=== PATIENT | female | born 1985 | race Caucasian/White ===

== ENCOUNTER 2024-12-31 21:09 | Emergency (ER) | payer MEDICAID, SELFPAY ==
--- OUTSIDE RECORDS SUMMARY | 2024-12-31 21:11 | XMS_ITS | Encounter Summary ---
Author Organization [facility] Address [address], [place] [address] Care Team Providers Care Visual Educator Name Role Phone Manohar Nance PA-C Primary Care Provider [phone] Encounter Details Date Type Department Care Team (Late st Contact Info) Description 09/16/2013 Correspondence [facility] [address] [place], [place] [id number] Eliot Rivas MD DME EQUIPMENT PROOF OF DELIVERY Social History Tobacco Use Types Packs/Day Years Used Date Smoking Tobacco: Every Day Cigarettes Last attempted to quit: 05/05/2011 Smokeless Tobacco: Never Alcohol Use Standard Drinks/Week Comments Yes 0.8 (1 standard drink = 0.6 oz p ure alcohol) occasionally Comments Unknown Sex and Gender Information Value Date Recorded Sex Assigned at Not on file Legal Sex Female 4:47 AM CDT Gender Identity Not on file Sexual Orientation Not on file documented as of this encounter Progress Notes * Eliot Rivas MD - 09/16/2013 12:00 AM CDT documented in this encounter Plan of Treatment Not on file documented as of this encounter Visit Diagnoses Not on filedocumented in this encounter Care Teams Visual Educator Relationship Specialty Start Date End Date Manohar Nance PA-C [address] [place] [address] PCP - General Physician Shirt Turner 07/02/18 documented as of this encounter
--- OUTSIDE RECORDS SUMMARY | 2024-12-31 21:11 | XMS_ITS | Encounter Summary ---
Author Organization [facility] Address [address] [address] Care Team Providers Care Photographer Assistant Name Role Phone Manohar Nance PA-C Primary Care Provider Encounter Details Date Type Department Care Team (Latest Contact Info) Description 11/13/1998 Orders Only Serjio Matute MD [address] [place], [place] [id number] Social History Tobacco Use Types Packs/Day Years Used Date Smoking Tobacco: Never Assessed Comments Unknown Sex and Gender Information Value Date Recorded Sex Assigned at Not on file Legal Sex Female 4:47 AM CDT Gender Identity Not on file Sexual Orientation Not on file documented as of this encounter Plan of Treatment Not on file documented as of this encounter Visit Diagnoses Not on filedocumented in this encounter Care Teams Photographer Assistant Relationship Specialty Start Date End Date Manohar Nance PA-C [address] [place] [address] PCP - General Physician Cattle Inspector 07/02/18 documented as of this encounter
--- OUTSIDE RECORDS SUMMARY | 2024-12-31 21:11 | XMS_ITS | Encounter Summary ---
Author Organization [facility] Address [address] [address] Care Team Providers Care Automatic Lathe Tender Name Role Phone Manohar Nance PA-C Primary Care Provider Encounter Details Date Type Department Care Team (Latest Contact Info) Description 04/09/1995 Orders Only Min Vanegas MD Social History Tobacco Use Types Packs/Day Years [...] on filedocumented in this encounter Care Teams Automatic Lathe Tender Relationship Specialty Start Date End Date Manohar Nance PA-C [address] [place] [address] PCP - General Physician Flange Turner 07/02/18 documented as of this encounter
--- OUTSIDE RECORDS SUMMARY | 2024-12-31 21:11 | XMS_ITS | Encounter Summary ---
Author Organization [facility] Address [address] [address] Care Team Providers Care General Operations Manager Name Role Phone Manohar Nance PA-C Primary Care Provider [phone] Encounter Details Date Type Department Care Team (Latest Contact Info) Description 10/02/1998 Orders Only Medardo Zayas MD [address] [place] [address] Social History Tobacco Use Types Packs/Day Years [...] on filedocumented in this encounter Care Teams General Operations Manager Relationship Specialty Start Date End Date Manohar Nance PA-C [address] [place] [address] PCP - General Physician Head Knitting Machine Fixer 07/02/18 documented as of this encounter
--- OUTSIDE RECORDS SUMMARY | 2024-12-31 21:11 | XMS_ITS | Encounter Summary ---
Author Organization [facility] Address [address], [place] [address] Care Team Providers Care Stem Frazer Name Role Phone Manohar Nance PA-C Primary Care Provider [phone] Encounter Details Date Type Department Care Team (Latest Contact Info) Description 11/24/1998 Orders Only Serjio Matute MD [address] [place], [place] [id number] Social History Tobacco Use Types Packs/Day Years [...] on filedocumented in this encounter Care Teams Stem Frazer Relationship Specialty Start Date End Date Manohar Nance PA-C [address] [place] [address] PCP - General Physician Dairy Farm Manager 07/02/18 documented as of this encounter
--- OUTSIDE RECORDS SUMMARY | 2024-12-31 21:11 | XMS_ITS | Encounter Summary ---
Author Organization [facility] Address [address] [place] [address] Care Team Providers Care Contracts Representative Name Role Phone No Ref-Primary, Physician Primary Care Provider Encounter Details Date Type Department Care Team (Late st Contact Info) Description 05/21/2024 MyC Medical Advice Initial Department Maritza Pond Social History Tobacco Use Types Packs/Day Years Used Date Smoking Tobacco: Former Cigarettes 0.5 10 1 07/15/2000 - 05/14/2011 Smokeless Tobacco: Never Comments:half a pack a day Alcohol Use Standard Drinks/Week Comments Yes 0 (1 standard drink = 0.6 oz pur e alcohol) occ PHQ-2 Answer Date Recorded PHQ-2 Score 0 06/16/2018 Adolescent Education Answer Date Record ed Getting School Help Needed Not on file 03/23 Comments No Sex and Gender Information Value Date Recorded Sex Assigned at Not on file Legal Sex Female 3:31 AM ECG TECHNICIAN Gender Identity Not on file Sexual Orientation Not on file documented as of this encounter Plan of Treatment Not on file documented as of this encounter Visit Diagnoses Not on filedocumented in this encounter Additional Health Concerns Assessment Noted Time PHQ-9 Depression Total Score: 4 11/23/19 17 7:11 AM CDT documented as of this encounter Care Teams Contracts Representative Relationship Specialty Start Date End Date No Ref-Primary, Physician PCP - General 11/16/20 documented as of this encounter
--- OUTSIDE RECORDS SUMMARY | 2024-12-31 21:11 | XMS_ITS | Clinical Summary ---
Author Organization [facility] Address [address] [place] [address] Care Team Providers Care Personal Development Coach Name Role Phone Manohar Nance PA-C Primary Care Provider [phone] Source Comments You are receiving this document as you are listed as the primary care provider,follow-up provider, or the patient has been referred to you for consultation.This is in compliance with the Medicare and[facility] EHR Incentive Program,which states Providers who transition their patient to another setting of careor provider of care or refers their patient to another provider of care shouldprovide summary care record for each transition of care or referral. [facility] Allergies Active Allergy Reactions Criticality Noted Date Comments Imidazole Antifungals Other, see comments 09/16 Blisters all over face Metronidazole 03/14/2005 PN: LW Reaction: blisters on face Penicillin And Derivatives Penicillins 04/23/2000 Medications * This document contains information received from the source organization and may not represent a complete record from that organization. acetaminophen (TYLENOL) 325 MG tablet Take 2 Tablets (650 mg) by mouth. Active aspirin EC 81 MG enteric coated tablet Take 81 mg by mouth daily. Active hydrOXYzine HCl (ATARAX) 25 MG tablet 1-2 tabs up tot every 6-8 hours as needed, makes you tired 30 Tablet 1 09/12/2021 Active Active Problems Problem Noted Date Diagnosed Date S/P laparoscopic hysterectomy 11/26/2022 Gastroesophageal reflux disease without esophagi tis 07/12/2019 Overview (05/19/2024): EGD 06/2019 normal, try PPI and low FODMAP diet Encounter for supervision of other normal pregna ncy 10/22/2011 Overview (02/20/2012): G3/1011 Engaged and with FOB for 8 years Works fulltime cleaning houses History of anxiety and off citalopram since July 2011 Generalized anxiety disorder 04/23/2010 Tobacco abuse 10/02/2009 Immunizations Immunization Administration Dates Next Due Flu Vac (3+ yrs) 06/19/2012,04/10/2004 H1n1 Miv Csl 3+ Yr (Injected) 04/17/2009 HepB Ped/Adol (0-18 yrs) 03/10/1997,02/05/1996 Influenza IIV4 (Quadrivalent ) 0.5mL (81762) 04/16/2021,04/12/2020 MMR 02/05/1996 Td 09/18/2006,03/10/1997 Tdap 11/23/2019,06/09/2009 Varicella 03/18/2000(Deferred: Immune by Danilo ashley) Family History Medical History Relation Name Comments High Blood Pressure Father Asthma Mother Blood Disease Mother factor V Other Maternal Aunt endometriosis Heart Disease Maternal Grandfather IN age 40 Relation Name Status Comments Father Mother Maternal Aunt Maternal Grandfather Social History Tobacco Use Types Packs/Day Years Used Date Smoking Tobacco: Every Day Cigarettes Smokeless Tobacco: Never Comments:1 pack/week Alcohol Use Standard Drinks/Week Comments Yes 0.8 (1 standard drink = 0.6 oz p ure alcohol) occasionally Comments Unknown Sex and Gender Information Value Date Recorded Sex Assigned at Not on file Legal Sex Female 4:47 AM CDT Gender Identity Not on file Sexual Orientation Not on file Last Filed Vital Signs Vital Sign Reading Time Taken Comments Blood Pressure 98/73 05/19/2024 8:09 AM SALES ORDER ADMINISTRATOR Pulse 99 05/19/2024 8:09 AM SALES ORDER ADMINISTRATOR Temperature 37.9 C (100.2 F) 05/19/2024 8:09 AM SALES ORDER ADMINISTRATOR Respiratory Rate 14 05/19/2024 8:09 AM SALES ORDER ADMINISTRATOR Oxygen Saturation 100% 05/19/2024 8:09 AM SALES ORDER ADMINISTRATOR Inhaled Oxygen Concentration - - Weight 71.2 kg (157 lb) 07/02/2018 3:56 PM SALES ORDER ADMINISTRATOR Height 175.3 cm (5' 9) 03/03/2019 1:10 PM CDT Body Mass Index 23.18 07/02/2018 3:56 PM SALES ORDER ADMINISTRATOR Plan of Treatment Health Maintenance Due Date Last Done Comments Cervical Cancer Screening Due 1983 Hep C Screening (Preventive Services) 1985 HepB Vaccine (3) 05/05/1997 03/10/1997, 02/05/1996 Adult Preventive Visit 2001 02/05/1996 Pneumococcal Vaccine (1 of 2 - PCV) 2002 COVID-19 Vaccine (1 - season) 2024 Mammogram 12/21/2024 12/22/2023, 10/23/2022 Influenza Vaccine (#1) 2025 , 04/12/2020, 06/19/2012, Additional history exists DTaP/Tdap/Td Vaccine (4 - Tdap) 11/22/2029 11/23/2019, 06/09/2009, 09/18/2006, Additional history exists Zoster/Shingles Vaccine (1 of 2) 2033 HIV Screening (Preventive Services) Completed 09/16/2011 HPV Vaccine Aged Out No longer eligi ble based on patient's age to complete this topic HepA Vaccine Aged Out No longer eligi ble based on patient's age to complete this topic Hib Vaccine Aged Out No longer eligi ble based on patient's age to complete this topic IPV (Polio) Vaccine Aged Out No longe r eligible based on patient's age to complete this topic MCV4 Vaccine Aged Out No longer eligi ble based on patient's age to complete this topic Meningococcal B Vaccine Aged Out No l onger eligible based on patient's age to complete this topic Insurance [facility] Care Teams Personal Development Coach Relationship Specialty Start Date End Date Manohar Nance PA-C [address] [place] [address] PCP - General Physician Psychiatric Np 07/02/18
--- OUTSIDE RECORDS SUMMARY | 2024-12-31 21:11 | XMS_ITS | Encounter Summary ---
Author Organization [facility] Address [address] [address] Care Team Providers Care Printed Circuit Board Layout Designer Name Role Phone Manohar Nance PA-C Primary Care Provider Encounter Details Date Type Department Care Team (Latest Contact Info) Description 04/07/1995 Orders Only Benjy Ac MD [address] [place], [place] [id number] Social History Tobacco Use Types Packs/Day Years [...] on filedocumented in this encounter Care Teams Printed Circuit Board Layout Designer Relationship Specialty Start Date End Date Manohar Nance PA-C [address] [place] [address] PCP - General Physician Ld Teacher 07/02/18 documented as of this encounter
--- OUTSIDE RECORDS SUMMARY | 2024-12-31 21:11 | XMS_ITS | Encounter Summary ---
[facility] Address [address], [place] [address] Care Team Providers Care Freight Car Repairer Name Role Phone Manohar Nance PA-C Primary Care Provider Encounter Details Date Type Department Care Team (Latest Contact Info) Description 05/15/1996 Orders Only [place] Social History Tobacco Use Types Packs/Day Years [...] on filedocumented in this encounter Care Teams Freight Car Repairer Relationship Specialty Start Date End Date Manohar Nance PA-C [address] [place] [address] PCP - General Physician Contact Center Rep 07/02/18 documented as of this encounter
--- OUTSIDE RECORDS SUMMARY | 2024-12-31 21:11 | XMS_ITS | Clinical Summary ---
Author Organization [facility] Address [address] [address] Phone Care Team Providers Care Camera Repairman Name Role Phone Unavailable Primary Care Provider Unavailabl e Allergies Active Allergy Reactions Criticality Noted Date Comments Metronidazole RASH Medium 01/02/2021 blisters Penicillins Hives High 01/02/2021 Medications unknown medication CBD A ctive Social History Tobacco Use Types Packs/Day Years Used Date Smoking Tobacco: Some Days Cigarettes Smokeless Tobacco: Never Tobacco Cessation:Ready to Q uit: Not Asked; Counseling Given: Not Answered Alcohol Use Standard Drinks/Week Comments Yes 0 (1 standard drink = 0.6 oz pur e alcohol) occ EH IP Custom IPV Answer Date Recorded Do you feel UNSAFE in any of your personal relationships with your family members or any other acquaintances? No 2022 Comments No Sex and Gender Information Value Date Recorded Sex Assigned at Not on file Legal Sex Female 11:31 AM CDT Gender Identity Not on file Sexual Orientation Not on file Obstetrics History Last Filed Vital Signs Vital Sign Reading Time Taken Comments Blood Pressure 110/73 12/02/2022 7:19 AM CDT Pulse 78 12/02/2022 7:19 AM CDT Temperature 36.6 C (97.8 F) 12/02/2022 7:19 AM CDT Respiratory Rate 16 12/02/2022 7:19 AM CDT Oxygen Saturation 98% 12/02/2022 7:19 AM CDT Inhaled Oxygen Concentration - - Weight 72.6 kg (160 lb) 12/02/2022 6:32 AM CDT Height 172.7 cm (5' 8) 12/02/2022 6:32 AM CDT Body Mass Index 24.33 12/02/2022 6:32 AM CDT Plan of Treatment Health Maintenance Due Date Last Done Comments Cervical Cancer Screening 1983 Last pap w/ HPV Testing 1983 Last pap w/o HPV Testing 1983 MAMMO,SCREEN 1983 Hepatitis B Vaccine (Standin g Order) (1 of 3 - 19+ 3-dose series) 2002 PERTUSSIS (Standing Order) 2002 Pneumococcal/PCV20 Vaccine: Pediatrics (2-5 yrs) and At-Risk Patients (6-49 yrs) (Standing Order) (1 of 2 - PCV) 2002 TETANUS (Standing Order) 2002 HPV Vaccine (Standing Order) Aged Out No longer eligible based on patient's age to complete this topic Insurance
--- OUTSIDE RECORDS SUMMARY | 2024-12-31 21:11 | XMS_ITS | Encounter Summary ---
Author Organization [facility] Address [address] [address] Care Team Providers Care Web Page Developer Name Role Phone Manohar Nance PA-C Primary Care Provider Encounter Details Date Type Department Care Team (Latest Contact Info) Description 02/01/1999 Orders Only Serjio Matute MD [address] [place], [place] [id number] Social History Tobacco Use Types Packs/Day Years [...] on filedocumented in this encounter Care Teams Web Page Developer Relationship Specialty Start Date End Date Manohar Nance PA-C [address] [place] [address] PCP - General Physician Data Processing Manager 07/02/18 documented as of this encounter
--- OUTSIDE RECORDS SUMMARY | 2024-12-31 21:11 | XMS_ITS | Encounter Summary ---
Author Organization [facility] Address [address] [place] [address] Care Team Providers Care Public Records Officer Name Role Phone No Ref-Primary, Physician Primary [...] on file Legal Sex Female 3:31 AM WATER MANAGER Gender Identity Not on file Sexual Orientation Not on file documented as of this encounter Plan of Treatment Not on file documented as of this encounter Visit Diagnoses Not on filedocumented in this encounter Additional Health Concerns Assessment Noted Time PHQ-9 Depression Total Score: 4 11/23/19 17 7:11 AM CDT documented as of this encounter Care Teams Public Records Officer Relationship Specialty Start Date End Date No Ref-Primary, Physician PCP - General 11/16/20 documented as of this encounter
--- OUTSIDE RECORDS SUMMARY | 2024-12-31 21:11 | XMS_ITS | Encounter Summary ---
Author Organization [facility] Address [address] [address] Care Team Providers Care Heel Coverer Machine Operator Name Role Phone Manohar Nance PA-C Primary Care Provider [phone] Encounter Details Date Type Department Care Team (Latest Contact Info) Description 11/02/1999 Orders Only Serjio Matute MD [address] [place], [place] [address] Social History Tobacco Use Types Packs/Day Years [...] on filedocumented in this encounter Care Teams Heel Coverer Machine Operator Relationship Specialty Start Date End Date Manohar Nance PA-C [address] [place] [address] PCP - General Physician Anthropology Department Chair 07/02/18 documented as of this encounter
--- OUTSIDE RECORDS SUMMARY | 2024-12-31 21:11 | XMS_ITS | Encounter Summary ---
Author Organization [facility] Address [address], [place] [address] Care Team Providers Care Life Scientist Name Role Phone Manohar Nance PA-C Primary Care Provider [phone] Encounter Details Date Type Department Care Team (Latest Contact Info) Description 02/17/1997 Orders Only Medardo Zayas MD [address] [place] [address] Social History Tobacco Use Types Packs/Day Years [...] on filedocumented in this encounter Care Teams Life Scientist Relationship Specialty Start Date End Date Manohar Nance PA-C [address] [place] [address] PCP - General Physician Rotary Driller 07/02/18 documented as of this encounter
--- OUTSIDE RECORDS SUMMARY | 2024-12-31 21:11 | XMS_ITS | Clinical Summary ---
Author Organization [facility] Address [address] [place] [address] Care Team Providers Care Eggs Inspector Name Role Phone No Ref-Primary, Physician Primary Care Provider Allergies Active Allergy Reactions Criticality Noted Date Comments Metronidazole Hcl Blisters 10/31/2011 Penicillins 10/31/2011 Medications LORazepam (ATIVAN) 1 MG tablet Take 0.5 mg by mouth as needed 0 11/27/2017 Active cyclobenzaprine (FLEXERIL) 5 MG tablet Take 5 mg by mouth 08/04/2018 Active metoclopramide (REGLAN) 10 MG tablet Take 10 mg by mouth 4 times daily (before meals and nightly) Active Active Problems Problem Noted Date Diagnosed Date Generalized anxiety disorder 09/07/2013 CARDIOVASCULAR SCREENING; LDL GOAL LESS THAN 160 02/04/2012 Resolved Problems Problem Noted Date Diagnosed Date Resolved Date Active labor 05/02/2012 02/02/2014 Vaginal delivery 05/02/2012 02/02/2014 labor 04/06/2012 02/02/2014 Blood type A+ 02/26/2012 02/02/2014 Encounter for supervision of other normal 11/11/2011 02/02/2014 Overview (04/10/2015): Diagnosis updated by automated process. Provider to review and confirm. Immunizations Immunization Administration Dates Next Due Influenza (IIV3) PF 06/19/2012 TDAP (Adacel,Boostrix) 06/09/2009 Family History Medical History Relation Comments Hypertension Father C.A.D. Maternal Grandfather NC early 50 Heart Disease Maternal Grandfather NC Cancer Maternal Grandmother lung cancer Cerebrovascular Disease Mother Circulatory Mother factor v Heart Disease Mother hole in her hear t Alcohol/Drug Paternal Grandfather Cerebrovascular Disease Paternal Grandmother Hypertension Paternal Grandmother Breast Cancer No family hx of Colon Cancer No family hx of Diabetes No family hx of Relation Status Comments Daughter Alive Father Alive Maternal Grandfather Maternal Grandmother Mother Alive Paternal Grandfather Paternal Grandmother Son Alive Social History Tobacco Use Types Packs/Day Years Used Date Smoking Tobacco: Former Cigarettes 0.5 10 1 07/15/2000 - 05/14/2011 Smokeless Tobacco: Never Tobacco Cessation:Ready to Q uit: No Comments:half a pack a day Alcohol Use [...] on file Legal Sex Female 3:31 AM ELECTRIC ORGAN ASSEMBLER AND CHECKER Gender Identity Not on file Sexual Orientation Not on file Last Filed Vital Signs Vital Sign Reading Time Taken Comments Blood Pressure 120/75 11/16/2020 12:08 AM CDT Pulse 78 11/16/2020 12:08 AM CDT Temperature 35.9 C (96.7 F) 11/15/2020 10:39 PM CDT Respiratory Rate 16 11/15/2020 10:3 9 PM CDT Oxygen Saturation 98% 11/16/2020 12: 08 AM CDT Inhaled Oxygen Concentration - - Weight 72.9 kg (160 lb 11.5 oz) 021 12:08 AM CDT Height 172.7 cm (5' 8) 11/03/2018 2:29 PM CDT Body Mass Index 24.44 11/03/2018 2:29 PM CDT Plan of Treatment Not on file Care Teams Eggs Inspector Relationship Specialty Start Date End Date No Ref-Primary, Physician PCP - General 11/16/20
--- OUTSIDE RECORDS SUMMARY | 2024-12-31 21:11 | XMS_ITS | Encounter Summary ---
Author Organization [facility] Address [address] [place] [address] Care Team Providers Care Sales Development Director Name Role Phone No Ref-Primary, Physician Primary [...] on file Legal Sex Female 3:31 AM MANAGER STATISTICAL Gender Identity Not on file Sexual Orientation Not on file documented as of this encounter Plan of Treatment Not on file documented as of this encounter Visit Diagnoses Not on filedocumented in this encounter Additional Health Concerns Assessment Noted Time PHQ-9 Depression Total Score: 4 11/23/19 17 7:11 AM CDT documented as of this encounter Care Teams Sales Development Director Relationship Specialty Start Date End Date No Ref-Primary, Physician PCP - General 11/16/20 documented as of this encounter
--- OUTSIDE RECORDS SUMMARY | 2024-12-31 21:11 | XMS_ITS | Clinical Summary ---
Author Organization [facility] Address [address] [place] [address] Care Team Providers Care Manager Of Employee Relations Name Role Phone Pcp, No Primary Care Provider Unavailabl e Allergies Active Allergy Reactions Criticality Noted Date Comments Nitroimidazoles 10/02/2009 Penicillins *Unknown - Childhood Rxn 10/02/2009 Unknown reaction as baby Medications acetaminophen (TYLENOL) 325 mg tabletIndication s:S/P laparoscopic hysterectomy Take 1-2 Tablets (325-650 mg) by mouth every 4 hours if needed for Pain. Max acetaminophen dose: 4000mg in 24 hrs. 100 Tablet 11/27/19 23 Active hydrOXYzine HCL 25 mg tabletIndication s:Intractable headache, unspecified chronicity pattern, unspecified headache type Take 1 Tablet (25 mg) by mouth 3 times daily if needed for Itching. 90 Tablet 1 10/26/19 25 Active propranoloL 10 mg tabletIndication s:Generalized anxiety disorder Take 1-2 Tablets (10-20 mg) by mouth two times daily. 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 History of anxiety and off citalopram since July 2011 Tobacco abuse 10/02/2009 09/22/2012 Encounters Date Type Department Care Team Description 11/15/2024 Nurse Triage [facility] Nurse Triage Pcp, No Headache 10/25/2024 4:30 PM CDT Ancillary Procedure [address] [address] 10/25/2024 3:30 PM CDT Office Visit [address] [address] Ted Browne PA Weight; Refill Request; Physical (not fasting) 10/25/2024 Travel from Last 3 Months Immunizations Immunization Administration Dates Next Due Hepatitis B (Adult) 02/05/1996 Hepatitis B (Peds) 03/10/1997,02/05/1996 Influenza A (H1N1), Inactivated 04/17/2009 Influenza A (H1N1), Inactiva landon (Age >=3 Years) 04/17/2009 Influenza, IIV3 (Age >=3 years) 06/19/2012,04/10 Influenza, IIV4 04/16/2021,04/12/2020,06/19/2012 MMR 02/05/1996 Td (Age >=7 Years) 09/18/2006,03/10/1997 Td, Preservative Free (age >= 7 Years) 7 Tdap 11/23/2019,06/09/2009 Family History Medical History Relation Name Comments ADD / ADHD Daughter Hypertension Father Other Father memory? Heart Disease Maternal Grandfather [place] age 40 Lung cancer Maternal Grandmother Asthma Mother Blood Disease Mother factor V Lupus Mother or RA Cirrhosis Paternal Grandfather EtOH Stroke Paternal Grandmother ADD / ADHD Son possible autism Cancer-breast No Family History Relation Name Status Comments Daughter Alive Father Alive Maternal Aunt Maternal Grandfather Maternal Grandmother Mother Alive Paternal Grandfather Paternal Grandmother Son Alive Social History Tobacco Use Types Packs/Day Years Used Date Smoking Tobacco: Former Cigarettes 1 23.4 1 06/17/1997 - 07/06/2021 Smokeless Tobacco: Never Alcohol Use Standard Drinks/Week Comments Yes 5 (1 standard drink = 0.6 oz pur e alcohol) PHQ-2 Answer Date Recorded PHQ-2 TOTAL SCORE 2 10/25/2024 Social Connections Answer Date Recorded Do you often feel lonely or isolated from those around you? 0 01/02/2024 Financial Resource Strain Answer Date R ecorded Difficulty of Paying Living Expenses 2 01/02/2024 Difficulty of Paying Living Expenses 1 01/02/2024 Food Insecurity Answer Date Recorded Do you worry your food will run out before you are able to buy more? 1 01/02/2024 Transportation Needs Answer Date Record ed Does lack of transportation keep you from medica l appointments? 1 01/02/2024 Does lack of transportation keep you from work, meetings or getting things that you need? 1 01/02/2024 Housing Stability Answer Date Recorded What is your housing situation today? 1 01/02/2024 Utilities Answer Date Recorded Do you have trouble paying f or utilities (for example, heat, electricity, water, phone)? 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 Not on file Not on file Not on file Obstetrics History Para Term AB IAB SAB Ectopic Multiple Livin g Live Births 4 2 2 0 2 1 1 0 2 2 Date Outcome GA Total Labor Labor/2nd/3rd Weight Sex Type Anes PTL Soc[place] A1 A5 Name Clin 2001 SAB 2009 Term 38w 0d 10h 00m/ 3.23 kg (7 lb 2 oz) F Vag-Sp ont Epidur al N Livin g 9 9 Aiyan a Mcknight Delivery Location:[facility] 2011 Term 39w 0d 4h 05m/0h 27m/ 3.85 kg (8 lb 7.6 oz) M Vag-Sp ont Local N Livin g 9 9 SEATO N,B1 ROSHNI A Delivery Location:[facility] 2013 IAB ELECTI VE AB Last Filed Vital Signs Vital Sign Reading Time Taken Comments Blood Pressure 102/64 10/25/2024 3:35 PM CDT Pulse 81 10/25/2024 3:35 PM CDT Temperature 37.5 C (99.5 F) 05/25/2024 8:51 AM GRAIN SACKER Respiratory Rate 16 08/13/2024 2:17 PM GRAIN SACKER Oxygen Saturation 100% 10/25/2024 3:3 5 PM CDT Inhaled Oxygen Concentration - - Weight 80.4 kg (177 lb 4.8 oz) 10/26/19 3:35 PM CDT with shoes Height 174.5 cm (5' 8.7) 10/25/2024 3: 35 PM CDT with shoes Body Mass Index 26.41 10/25/2024 3:35 PM CDT Plan of Treatment Health Maintenance Due Date Last Done Comments Hepatitis B series for 19+ (3 of 3 - 3-dose series) 05/05/1997 03/10/1997, 02/05/1996, 02/05/1996 Hepatitis C screening for age 18-79 2001 COVID-19 vaccine series ( season) 2024 Pap test for age 21-65 04/08/2024 9, 04/08/2019, 10/22/2011, Additional history exists Influenza Vaccine (#1) 2025 , 04/12/2020, 06/19/2012, Additional history exists BMI (ht and wt on same day) for age 18+ 10/25/2025 10/25/2024, 07/23/2022, 09/21/2021, Additional history exists Depression screening for age 12+ 10/25/2025 10/25/2024, 12/27/2021, 08/07/2021, Additional history exists Tetanus booster 11/22/2029 11/23/2019, 01/0 06/2009, 09/18/2006, Additional history exists HIV for age 15-65 Completed 09/16/2011 Pneumococcal series for age 6-49 Aged Out No longer eligible based on patient's age to complete this topic Procedures Procedure Name Priority Date/Time Associated Diagnosis Comments TSH WITH REFLEX Routine 10/25/2024 4:33 PM CDT Weight gain Fatigue, unspecified type LIPID PANEL W REFLEX MEASURED LDL Routine 10/25/2024 4:33 PM CDT Screening for cholesterol level HEMOGLOBIN A1C Routine 10/25/2024 4:33 PM CDT Screening for diabetes mellitus Fatigue, unspecified type CBC WITH AUTO DIFFERENTIAL Routine 10/25/2024 4:33 PM CDT Pelvic pain Fatigue, unspecified type XR ABDOMEN 1 VIEW Routine 10/25/2024 4:2 7 PM CDT Pelvic pain Chronic constipation SALES MER[employer] ASSOCI[employer] THIN PREP PAP SCREEN IMAGED Routine 04/08/2019 11:00 AM CDT ANTI HIV 1/2 Routine 09/16/2011 4:17 PM CDT examination or test, unconfirmed from Last 3 Months or Most Recently Relevant to Health Maintenance Results * HEMOGLOBIN A1C (10/25/2024 4:33 PM CDT) HEMOGLOBIN A1C 5.1 <5.7 % [facility] Comment: For the purpose of screening for the presence of diabetes: <5.7% Consistent with the absence of diabetes 5.7-6.4% Consistent with increased risk for diabetes (prediabetes) > or =6.5% Consistent with diabetes This assay result is consistent with a decreased risk of diabetes. Currently, no consensus exists regarding use of hemoglobin A1c for diagnosis of diabetes in children. According to [place] Diabetes Association (ADA) guidelines, hemoglobin A1c <7.0% represents optimal control in non- diabetic patients. Different metrics may apply to specific patient populations. Standards of Medical Care in Diabetes(ADA). Blood BLOOD SPECIMEN / Unknown 10/25/2024 4:33 PM CDT 10/25/2024 4:33 PM CDT Narrative [facility] - 10/26/2024 7:14 AM CDT FASTING:NO FASTING: NO us Ted ATKINS CHEMISTRY Final Resul t [facility] [address] [place] [address], [facility][1] [address] [place] [address] * TSH WITH REFLEX (10/25/2024 4:33 PM CDT) TSH W/REFLEX TO FT4 1.94 mIU/L [facility] Comment: Reference Range > or = 20 Years 0.40-4.50 Ranges First trimester 0.26-2.66 Second trimester 0.55-2.73 Third trimester 0.43-2.91 Blood BLOOD SPECIMEN / Unknown 10/25/2024 4:33 PM CDT 10/25/2024 4:33 PM CDT Narrative [facility] - 10/26/2024 4:09 AM CDT FASTING:NO FASTING: NO Ted ATKINS CHEMISTRY Final Resul t [facility] [address] [place] [id number], [address] [address] * (ABNORMAL) LIPID PANEL W REFLEX MEASURED LDL (10/25/2024 4:33 PM CDT) CHOLESTEROL, TOTAL 206(H) <200 mg/dL [facility] HDL CHOLESTEROL 65 > OR = 50 mg/dL [facility] TRIGLYCERIDES 88 <150 mg/dL [facility] LDL-CHOLESTEROL 122(H) mg/dL (calc) [facility] Comment: Reference range: <100 Desirable range <100 mg/dL for primary prevention; <70 mg/dL for patients with CHD or diabetic patients with > or = 2 CHD risk factors. LDL-C is now calculated using the Viky calculation, which is a validated novel method providing better accuracy than the Friedewald equation in the estimation of LDL-C. Adilson HAMPTON et al. SARA. 2013;310(19): 9681-3141 (http://education.Flattr/faq/ZAP873) CHOL/HDLC RATIO 3.2 <5.0 (calc) [facility] NON HDL CHOLESTEROL 141(H) <130 mg/dL (calc) [facility] Comment: For patients with diabetes plus 1 major ASCVD risk factor, treating to a non-HDL-C goal of <100 mg/dL (LDL-C of <70 mg/dL) is considered a therapeutic option. Blood BLOOD SPECIMEN / Unknown 10/25/2024 4:33 PM CDT 10/25/2024 4:33 PM CDT Narrative [facility] - 10/26/2024 5:04 AM CDT FASTING:NO FASTING: NO Ted ATKINS CHEMISTRY Final Resul t [facility]ential [facility] [address] [place] [address], [employer] [address] [place] [address] * CBC AND DIFFERENTIAL (10/25/2024 4:33 PM CDT) Pathologist [facility] WHITE BLOOD CELL COUNT 5.5 3.8 - 10.8 Thousand/u L [facility] RED BLOOD CELL COUNT 4.34 3.80 - 5.10 Million/uL [facility] HEMOGLOBIN 13.5 11.7 - 15.5 g/dL [facility] HEMATOCRIT 39.9 35.0 - 45.0 % [facility] MCV 91.9 80.0 - 100.0 fL [facility] MCH 31.1 27.0 - 33.0 pg [facility] MCHC 33.8 32.0 - 36.0 g/dL [facility] Comment: For adults, a slight decrease in the calculated MCHC value (in the range of 30 to 32 g/dL) is most likely not clinically significant; however, it should be interpreted with caution in correlation with other red cell parameters and the patient's clinical condition. RDW 12.0 11.0 - 15.0 % [facility] PLATELET COUNT 304 140 - 400 Thousand/u L [facility] MPV 9.4 7.5 - 12.5 fL [facility] ABSOLUTE NEUTROPHILS 2,789 1,500 - 7,800 cells/uL [facility] ABSOLUTE LYMPHOCYTES 2,178 850 - 3,900 cells/uL [facility] ABSOLUTE MONOCYTES 424 200 - 950 cells/uL [facility] ABSOLUTE EOSINOPHILS 72 15 - 500 cells/uL [facility] ABSOLUTE BASOPHILS 39 0 - 200 cells/uL [facility] NEUTROPHILS 50.7 % [facility] LYMPHOCYTES 39.6 % [facility] MONOCYTES 7.7 % [facility] EOSINOPHILS 1.3 % [facility] BASOPHILS 0.7 % [facility] Blood BLOOD SPECIMEN / Unknown 10/25/2024 4:33 PM CDT 10/25/2024 4:33 PM CDT Narrative [facility] - 10/26/2024 4:01 AM CDT FASTING:NO FASTING: NO Ted ATKINS HEMATOLOGY Final Resul t [facility] [address] [place] [address], [facility] [employer] [address] [place] [address] * XR ABDOMEN 1 VIEW (10/25/2024 4:27 PM CDT) Anatomical Region Laterality Modality Abdomen Computed Radiogr aphy 10/27/2024 8:18 AM CDT Narrative 10/27/2024 8:18 AM CDT For Patients: As a result of the Century Cures Act, medical imaging exams and procedure reports are released immediately into your electronic medical record. You may view this report before your referring provider. If you have questions, please contact your health care provider. Indication: Pelvic pain, chronic constipation. Technique: Abdomen 1 view. Comparison: None. Findings: Nonobstructed bowel gas pattern with moderate colonic fecal retention. No acute osseous abnormality. Included lung bases are clear. Impression: Nonobstructed bowel-gas pattern with moderate colonic fecal retention. Dictated by Manuela Gastelum MD @ 10/27/2024 8:18:41 AM (Electronically Signed) Procedure Note Manuela Gastelum MD - 10/27/2024 For Patients: As a result of the Cures Act, medical imagingexams and procedure reports are released immediately into your electronicmedical record. You may view this report before your referring provider.If you have questions, please contact your health care provider. Indication: Pelvic pain, chronic constipation. Technique: Abdomen 1 view. Comparison: None. Findings: Nonobstructed bowel gas pattern with moderate colonic fecal retention. Noacute osseous abnormality. Included lung bases are clear. Impression: Nonobstructed bowel-gas pattern with moderate colonic fecal retention. Dictated by Manuela Gastelum MD @ 10/27/2024 8:18:41 AM (Electronically Signed) Ted ATKINS GENERAL IMAGING Final Resul t * SAL[employer] MER[employer]ISE ASSOCI[employer] THIN PREP PAP SCREEN IMAGED (04/08/2019 11:00 AM CDT) Case Report Gynecologic Cytology Report Case: [id number] Authorizing Provider: Katherine Contreras Collected: 04/08/2019 1100 MD Maria G Ordering Location: [facility] Received: 04/09/2019 0953 First Screen: Missael Ornelas Specimen: SALES MERCHANDISE ASSOCIATE ThinPrep Vial Screening, Cervical/Vaginal 04/20/2019 11:25 AM GRAIN SACKER [facility]AL [facility] INTERPRETATION/ RESULT NEGATIVE FOR INTRAEPITHELIAL LESION OR MALIGNANCY (NIL) (none) 04/20/2019 11:25 AM GRAIN SACKER [facility] ENTRAL LABORATORY at 1125 GRAIN SACKER SPECIMEN ADEQUACY Satisfactory for evaluation Endocervical component present 04/20/2019 11:25 AM GRAIN SACKER [facility] HPV REQUEST HPV and PAP 04/20/2019 11:25 AM [facility] Date of LMP 03/31/2019 04/20/2019 11:25 AM [facility] Last Pap Result First Pap/Unknown 11:25 AM [facility] Automated Review Successful 04/20/2019 11:25 AM [facility] Comment:Specimen processed s uccessfully by automated human resources benefits coordinator device, [employer] Imaging System, [employer] ANCILLARY TESTING SALES MERCH[employer]ISE ASSOCIATE HPV Ordered, Please see separate report 04/20/2019 11:25 AM [facility] Note The pap test is a screening technique, not a diagnostic procedure. It is used primarily to screen for squamous cancers and precursor lesions. Published studies have shown that it is subject to both false negative and false positive results. The pap test should not be used as the sole means to diagnose or exclude pre-malignant and malignant lesions. Cytology is screened and interpreted at [facility] - [address], [place] [address] and [facility] - [address]; [place] [address] and [facility] - [address]; [place] [address] and [facility] [address]; [place] [address] 04/20/2019 11:25 AM [facility] Other (Cervical/Vagina l) 04/08/2019 11:00 AM CDT 04/09/2019 9:53 AM CDT us Katherine Contreras MD PATHOLOGY/CYTOLOGY Final Result [facility] [address] [place] [address], [place] * ANTI HIV 1/2 (09/16/2011 4:17 PM CDT) ANTI HIV 1/2 Non-reacti ve [facility] Blood specimen (specimen) BLOOD SPECIMEN / Unknown 09/16/2011 4:17 PM CDT 09/16/2011 4:08 PM CDT us Cuca Danny Haqq CNM SEND OUTS Final Result [facility] [place]NAL ZIP [address] [place] [address] from Last 3 Months or Most Recently Relevant to Health Maintenance Insurance [facility] Advance Directives * Full Code (Latest Code Status on File) Date Activated Date Inactivated Comments 11/26/2022 9:22 AM 11/26/2022 6:29 PM Question Answer Comments Code Status Discussion: Reviewed Preferences Care Teams Manager Of Employee Relations Relationship Specialty Start Date End Date Pcp, No . PCP - General 05/25/24
--- OUTSIDE RECORDS SUMMARY | 2024-12-31 21:11 | XMS_ITS | Encounter Summary ---
Author Organization [facility] Address [address] [address] Care Team Providers Care Rendering Equipment Tender Name Role Phone Manohar Nance PA-C Primary Care Provider Encounter Details Date Type Department Care Team (Latest Contact Info) Description 03/10/1997 Orders Only Medardo Zayas MD [address] [place] [address] Social History Tobacco Use Types Packs/Day Years [...] on filedocumented in this encounter Care Teams Rendering Equipment Tender Relationship Specialty Start Date End Date Manohar Nance PA-C [address] [place] [address] PCP - General Physician Real Estate Utilization Officer 07/02/18 documented as of this encounter
--- OUTSIDE RECORDS SUMMARY | 2024-12-31 21:11 | XMS_ITS | Encounter Summary ---
Author Organization [facility] Address [address] [address] Care Team Providers Care Ladle Liner Helper Name Role Phone Manohar Nance PA-C Primary Care Provider Encounter Details Date Type Department Care Team (Latest Contact Info) Description 08/05/1997 Orders Only Medardo Zayas MD [address] [place] [address] Social History Tobacco Use Types Packs/Day Years [...] on filedocumented in this encounter Care Teams Ladle Liner Helper Relationship Specialty Start Date End Date Manohar Nance PA-C [address] [place] [address] PCP - General Physician Consumer Loan Specialist 07/02/18 documented as of this encounter
[2024-12-31 21:17] VITALS: BP 122/78; PULSE 80; RESP 16; TEMP 36.7; O2SAT 98; BMI 25.4
--- NOTE | 2024-12-31 21:34 | ED.CHESTPAIN ---
HPI - Chest Pain General Time Seen by Provider: 21:34 Date Seen: 12/31/24 Chief Complaint: Chest Pain Stated Complaint: chest pain, left arm and back pain Time Seen by Provider: 12/31/24 21:34 Source: patient and family (Spouse) History of Present Illness HPI narrative: Jyothi is a 39 yo female who presents to the emergency department for evaluation of chest pain. Patient complains of chest pain that is located at her left lateral lower chest wall near her left breast. Patient reports the pain started this morning when she woke up. Patient describes the pain is a dull pain with intermittent sharp pleuritic pain. Patient states that she worked all day and had a long work week, patient cleans houses. Patient states that after work today she was tired so she slept, and then this evening she also developed some pain in her left arm and pain in the middle of her back underneath her shoulder pain so came in for further evaluation. Patient took Advil around 7:30 - 8 pm. tonight and does report some improvement of symptoms. Patient currently denies any chest pain. Patient does report of the past 2 nights she has has had some right-sided chest pain that has been keeping up at night. Patient denies any fever, chills, cough or cold-like symptoms. Denies any abdominal pain, nausea, vomiting. Patient denies any dysuria, lower extremity edema or calf tenderness. Patient does use tobacco, reports having fewer alcohol beverage last night. No other complaints. Related Data Home Medications ?Medication ?Instructions ?Recorded ?Confirmed dextroamphetamine-amphetamine ER 1 cap PO QAM 09/29/22 09/29/22 10 mg 24hr capsule,extend release (Adderall XR) lorazepam 0.5 mg tablet 0.5 mg PO DAILY PRN anxiety 09/29/22 09/29/22 pantoprazole 20 mg tablet,delayed 20 mg PO DAILY 09/29/22 09/29/22 release propranolol 10 mg tablet 10 - 20 mg PO PRN anxiety 09/29/22 09/29/22 vilazodone 10 mg tablet 10 mg PO DAILY 09/29/22 09/29/22 Allergies Allergy/AdvReac Type Severity Reaction Status Date / Time metronidazole (From Flagyl) Allergy Severe Verified 09/29/22 11:58 penicillamine Allergy Severe Verified 09/29/22 11:58 Review of Systems Narrative Past medical history, past surgical history, medications, allergies, family history, and social history were reviewed with the patient. No additional pertinent items. A medically appropriate review of systems was performed with pertinent positives and negatives noted in HPI, all other systems negative. [facility] Social History Smoking Status: Current every day smoker What tobacco products do you use: cigarettes Do you use any of these nicotine containing products: None Second hand tobacco smoke exposure: No How often do you have a drink containing alcohol: monthly or less How many standard drinks containing alcohol do you have on a typical day: 3 or 4 How often do you have six or more drinks on one occasion: Never AUDIT-C Alcohol total score: 2 Non-prescribed substance use: denies use service: No Exam Narrative Exam Narrative: General: Afebrile, no acute distress HEENT: Normocephalic, atraumatic, conjunctiva normal. MMM Neck: non-tender, supple Cardio: regular rate. regular rhythm Resp: Normal work of breathing, no respiratory distress, lungs clear bilaterally, no wheezing, rhonchi, rales Chest/Back: no visual signs of trauma, no midline tenderness, no CVA tenderness Abdomen: soft, non distension, no tenderness, no peritoneal signs Neuro: alert and fully oriented. CN II-XII grossly intact. Grossly normal strength and sensation in all extremities. MSK: no deformities. Normal range of motion Integumentary/Skin: no rash visualized, normal color Psych: normal affect, normal behavior Const Vital Signs, click to edit/add: Vital Signs - 24 hr 12/31/24 21:17 12/31/24 23:30 Temperature 98.0 F Pulse Rate [Pulse Oximeter] 80 56 L Respiratory Rate 16 16 Blood Pressure [Right Upper Arm] 122/78 97/56 L Pulse Oximetry 98 98 Oxygen Delivery Method Room Air Course Vital Signs Vital signs: Initial Vital Signs Temperature 98.0 F 12/31/24 21:17 Temperature Source Temporal Artery Scan 12/31/24 21:17 Pulse Rate 80 12/31/24 21:17 Pulse Rhythm Regular 12/31/24 21:17 Respiratory Rate 16 12/31/24 21:17 Blood Pressure 122/78 12/31/24 21:17 Blood Pressure Mean 92 12/31/24 21:17 Blood Pressure Position Sitting 12/31/24 21:17 Pulse Oximetry 98 12/31/24 21:17 Oxygen Delivery Method Room Air 12/31/24 21:17 Vital Signs Temperature 98.0 F 12/31/24 21:17 Pulse Rate 80 12/31/24 21:17 Respiratory Rate 16 12/31/24 21:17 Blood Pressure 122/78 12/31/24 21:17 Pulse Oximetry 98 12/31/24 21:17 Oxygen Delivery Method Room Air 12/31/24 21:17 Temperature 98.0 F 12/31/24 21:17 Pulse Rate 56 L 12/31/24 23:30 Respiratory Rate 16 12/31/24 23:30 Blood Pressure 97/56 L 12/31/24 23:30 Pulse Oximetry 98 12/31/24 23:30 Oxygen Delivery Method Room Air 12/31/24 21:17 MDM - Chest Pain MDM Narrative Medical decision making narrative: Jyothi is a 39 yo female who presents to the emergency department for evaluation of chest pain. Upon arrival patient is not toxic appearing, afebrile, in distress secondary to pain. Patient hemodynamically stable vital signs within normal limits. Differential diagnosis includes but is not limited to ACS versus atypical chest pain versus pleurisy versus pneumothorax versus pneumonia versus PE versus dissection versus musculoskeletal versus acid reflux versus esophageal spasm versus pancreatitis versus cholecystitis versus biliary colic among others. Upon arrival patient declined anything for symptoms and currently denies any pain. EKG, comprehensive labs performed. I reviewed EKG which demonstrates normal sinus rhythm with a ventricular rate of 81 beats per minute, right axis, QTC 439, no acute ischemic change. No prior EKG to compare to. Comprehensive labs unremarkable with no leukocytosis-white blood cell count 5.7, hemoglobin 13.4, no acute metabolic or electrolyte abnormality, negative D-dimer, no transaminitis, normal lipase, negative troponin. I personally reviewed and interpreted chest x-ray which is unremarkable with no focal infiltrate, pleural effusion, pneumothorax. On re-evaluation patient continue resting comfortably, no distress. Overall ED workup unremarkable. No evidence of PE, pneumonia, pneumothorax, infection, ACS unlikely given EKG troponin within normal limits. I discussed results with patient and family. At this time plan for discharge home with continued supportive care. Patient does report symptoms improved after ibuprofen so suspect some type of inflammatory process. Patient agrees with discharge home, referral to primary care provider given. Return precautions are discussed. Patient is also no second-degree complaint. Medical Records Data Attestation: I reviewed the patient's medical records. Lab Data Attestation: I reviewed the patient's lab results. Labs: Lab Results 12/31/24 Range/Units 21:45 WBC 5.78 (4.50-11.00) K/uL RBC 4.32 (4.00-5.20) m/uL Hgb 13.4 (12.0-16.0) gm/dL Hct 39.6 (33.0-51.0) % MCV 92 (80-100) fL MCH 31 (26-34) pg MCHC 34 (32-36) gm/dL RDW Coeff of Radhika 11.8 (11.5-15.5) % Plt Count 280 (140-440) K/uL Neut % (Auto) 53.6 (42.0-72.0) % Lymph % (Auto) 33.7 (20-44) % Tyler % (Auto) 8.7 (0.0-11.0) % Eos % (Auto) 3.3 (0.0-7.0) % Baso % (Auto) 0.5 (0.0-3.0) % Neut # (Auto) 3.10 (1.7-7.0) K/uL Lymph # (Auto) 1.95 (0.90-2.90) K/uL Tyler # (Auto) 0.50 (0.00-0.90) K/UL Eos # (Auto) 0.19 (0.00-0.50) K/uL Baso # (Auto) 0.03 (0.00-0.30) K/uL Abs Immat Gran (auto) 0.01 (0.00-0.30) K/uL Imm/Tot Granulo (auto) 0.2 % D-Dimer Quant (PE/DVT) 0.19 (0.00-0.50) ug/ml Sodium 136 (135-149) mmol/L Potassium 3.9 (3.6-5.1) mmol/L Chloride 106 (96-114) mmol/L Carbon Dioxide 26 (20-32) mmol/L Anion Gap 4 L (7-15) mEq/L BUN 20 (5-24) mg/dL Creatinine 0.8 (0.5-1.5) mg/dL Estimated Creat Clear 93.35 Estimated GFR 95 ml/min Glucose 90 (60-115) mg/dL Calcium 8.9 (8.4-10.6) mg/dL Total Bilirubin 0.8 (0.1-1.5) mg/dL AST 25 (12-35) U/L ALT 14 (4-35) U/L Alkaline Phosphatase 51 (40-150) U/L Troponin I < 0.01 (0.01-0.04) ng/mL Total Protein 7.1 (6.0-8.3) g/dL Albumin 4.3 (3.3-5.0) g/dL Lipase 53 (23-300) U/L Discharge Plan Discharge Clinical Impression: Chest pain Patient Disposition: Home, Self-Care Condition: Stable Additional Instructions: Please follow-up with your primary care provider in the next 3-5 days for further evaluation and follow-up. Please call this an appointment. Please take [id number] Tylenol 1000 mg and ibuprofen 600 mg every 6 hours as needed for pain. Please continue on medications. Please rest, drink plenty of fluids. Please return to the emergency department if you develop high fever, severe pain, weakness/syncope, difficulty breathing, new or worsening symptoms. It was a pleasure taking care of you today. We hope you feel better soon. Prescriptions: No Action dextroamphetamine-amphetamine [Adderall XR] 10 mg capsule,extended release 24hr 1 cap PO QAM propranolol 10 mg tablet 10 - 20 mg PO PRN (Reason: anxiety) lorazepam 0.5 mg tablet 0.5 mg PO DAILY PRN (Reason: anxiety) pantoprazole 20 mg tablet,delayed release (DR/EC) 20 mg PO DAILY vilazodone 10 mg tablet 10 mg PO DAILY Follow Up/Referrals: Provider,Not a Local [Primary Care Provider, Family Practice] Stand Alone Forms: [employer] Info Instructions
[2024-12-31 22:08] LABS: Hematocrit* 39.6 % (33.0-51.0); Hemoglobin* 13.4 gm/dL (12.0-16.0); Immature Granulocytes Abs Auto 0.01 K/uL (0.00-0.30); Immature Granulocytes Pct Auto 0.2 %; Lymphocytes Absolute Auto 1.95 K/uL (0.90-2.90); Mean Corpuscular HGB Conc 34 gm/dL (32-36); Mean Corpuscular Hemoglobin 31 pg (26-34); Mean Corpuscular Volume 92 fL (80-100); RDW Coefficient of Variation % 11.8 % (11.5-15.5); Red Blood Count* 4.32 m/uL (4.00-5.20); White Blood Count* 5.78 K/uL (4.50-11.00)
[2024-12-31 22:13] LABS: Slide Review Reflex No
[2024-12-31 22:24] LABS: Albumin* 4.3 g/dL (3.3-5.0); Chloride* 106 mmol/L (96-114); D Dimer Quantitative* 0.19 ug/ml (0.00-0.50)
[2024-12-31 22:25] LABS: Potassium* 3.9 mmol/L (3.6-5.1); Sodium* 136 mmol/L (135-149)
[2024-12-31 22:27] LABS: Alanine Aminotransferase* 14 U/L (4-35); Alkaline Phosphatase* 51 U/L (40-150); Anion Gap 4 mEq/L (7-15); Aspartate Amino Transferase* 25 U/L (12-35); Bilirubin Total* 0.8 mg/dL (0.1-1.5); Blood Urea Nitrogen* 20 mg/dL (5-24); Calcium* 8.9 mg/dL (8.4-10.6); Carbon Dioxide* 26 mmol/L (20-32); Creatinine* 0.8 mg/dL (0.5-1.5); Est. Creatinine Clearance* 93.35; Estimated Glomerular Filt Rate 95 ml/min; Glucose* 90 mg/dL (60-115); Total Protein* 7.1 g/dL (6.0-8.3)
--- NOTE | 2024-12-31 22:54 | CRLHL7_ITS ---
For Patients: As a result of the Century Cures Act, medical imaging exams and procedure reports are released immediately into your electronic medical record. You may view this report before your referring provider. If you have questions, please contact your health care provider. INDICATION: Chest pain left side. TECHNIQUE: Chest 2 views. COMPARISON: None. FINDINGS: Cardiovascular and mediastinum: Heart size and vasculature are normal in caliber and appearance. Lungs and pleural spaces: No focal consolidation, pleural effusion, or pneumothorax. Bones and soft tissues: Unremarkable for age. IMPRESSION: No evidence of an acute pulmonary process. Dictated by Noe Ny MD @ 12/31/2024 11:32:30 PM (Electronically Signed)
[2024-12-31 23:30] VITALS: BP 97/56; PULSE 56; RESP 16; O2SAT 98
== END 2024-12-31 23:59 | disposition home or self-care (01) ==
PROVIDERS: Emergency Provider Emergency Medicine
DX: R07.9 Chest pain, unspecified (principal)
CPT/HCPCS: 36415; 71046; 80053; 83690; 84484; 85025; 85379; 93005; 99284; 99285

== ENCOUNTER 2025-03-15 11:13 | Outpatient (CLI) | payer MEDICAID, SELFPAY | END 2025-03-15 11:14 | disposition home or self-care (01) | PROVIDERS: Visit Provider Family Medicine | DX: G89.29 Other chronic pain (principal); Z11.59 Encounter for screening for other viral diseases; Z82.61 Family history of arthritis; Z82.69 Family history of other diseases of the musculoskeletal system and connective tissue | CPT/HCPCS: 80053; 80061; 84443; 86038; 86140; 86803 ==

== ENCOUNTER 2025-04-18 12:01 | Outpatient (CLI) | payer MEDICAID, SELFPAY ==
--- NOTE | 2025-04-18 13:00 | CRLHL7_ITS ---
For Patients: As a result of the Century Cures Act, medical imaging exams and procedure reports are released immediately into your electronic medical record. You may view this report before your referring provider. If you have questions, please contact your health care provider. Indication: Headache. Dizziness. Technique: Multiplanar multisequence noncontrast MR images of the brain. Comparison: None. Findings: The ventricles and sulci are within normal limits for patient age. No mass shift. Small FLAIR hyperintensities within the central right thalamus and left periatrial region, nonspecific. No recent intracranial or pathologic extra-axial fluid collection. Punctate susceptibility in the medial right frontal lobe may represent a chronic microhemorrhage or mineralization. No diffusion restriction to suggest acute infarction. The major arterial flow voids of the skull base are preserved. Globes are symmetric. [id number] ethmoid sinus mucosal thickening. Trace right mastoid fluid. Impression: 1. No acute intracranial abnormality. 2. Small FLAIR hyperintensities within the central right thalamus and left periatrial region, nonspecific though differential considerations include sequelae of minimal chronic microvascular ischemic change, migraine headaches, or demyelination. Dictated by Dave Toscano MD @ 04/18/2025 2:44:05 PM (Electronically Signed)
== END 2025-04-18 12:02 | disposition home or self-care (01) ==
PROVIDERS: Visit Provider Family Medicine
DX: R51.9 Headache, unspecified (principal); R42 Dizziness and giddiness
CPT/HCPCS: 70551